=== PATIENT | female | born 2000 | race Caucasian/White ===

== ENCOUNTER 2021-11-18 05:59 | Inpatient (IN) | payer BC ==
--- NOTE | 2021-11-17 19:23 | P.HPOB ---
History of Present Illness H&P Date: 11/17/21 Chief Complaint: Induction of labor This is a 21 y.o. female, 1, para 0, with an estimated date of confinement of 11/14/2021, estimated gestational age of 40-4/7 weeks, who presents for induction of labor. She has irregular contractions and pressure. course has been complicated by intermittent maternal tachycardia. labs: Hepatitis B surface antigen-neg RPR-NR HIV-NR Rubella-immune Blood type-A+ Antibody screen-neg Hemoglobin-14.1 Toxoplasma-neg 1 hr. GTT-130 3 hr. 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 Review of Systems Constitutional: Denies chills, Denies fever Eyes: denies blurred vision, denies pain Ears, nose, mouth and throat: Denies headache, Denies sore throat Cardiovascular: Denies chest pain, Denies shortness of breath Respiratory: Denies cough Gastrointestinal: Reports abdominal pain (irregular contractions) Genitourinary: Reports pelvic pain, Reports Musculoskeletal: Reports low back pain Integumentary: Denies pruritus, Denies rash Neurological: Denies numbness, Denies weakness Psychiatric: Denies anxiety, Denies depression Past Medical History Past Medical History: No Reported History Past Surgical History: No Surgical Hx Reported Past Psychological History: No Psychological Hx Reported Smoking Status: Never smoker Past Alcohol Use History: None Reported Past Drug Use History: None Reported - Past Family History Father Family Medical History: Hypertension Medications and Allergies Home Medications Medication Instructions Recorded Confirmed Type Wws136/Iron/FA/O3/Dha/Epa/Fish 11/17/21 History [ Multi-Dha Softgel] Allergies Allergy/AdvReac Type Severity Reaction Status Date / Time No Known Allergies Allergy Verified 11/17/21 19:20 Exam Osteopathic Statement: *. No significant issues noted on an osteopathic structural exam other than those noted in the History and Physical/Consult. HEENT: within normal limits Heart: regular rate and rhythm Lungs: clear to auscultation bilaterally Abdomen: Cervix: 1.5 cm/70%/-2 heart tones: 140's by doppler Extremities: neg. Kendall's Assessment and Plan (1) 40 weeks gestation of Status: Acute Code(s): Z3A.40 - 40 WEEKS GESTATION OF SNOMED Code(s): 64065959 Plan: Proceed with oxytocin induction of labor. Expectant management. Epidural anesthesia if desired.
[2021-11-18] MEDS ORDERED: OXYTOCIN 10 UNIT/ML 1 ML VIAL IM PRN (06:12)
[2021-11-18] MEDS ORDERED: TERBUTALINE 1 MG/ML VIAL SQ PRN (06:12)
[2021-11-18] MEDS ORDERED: LIDOCAINE 0.5% (PF) 5 MG/ML (50 ML SDV) SQ PRN (06:12)
[2021-11-18] MEDS ORDERED: CARBOPROST TROMETHAMINE 250 MCG/ML 1 ML AMP IM PRN (06:12)
[2021-11-18] MEDS ORDERED: LIDOCAINE 1% (10MG/ML) FOR IV START INTRADERMA PRN (06:12)
[2021-11-18] MEDS ORDERED: METHYLERGONOVINE 0.2 MG/ML 1 ML AMP IM PRN (06:12)
[2021-11-18] MEDS ORDERED: OXYTOCIN 30 UNITS/500 ML NS 30 UNIT in SALINE 1 500ML.BAG IV SCH ×2 (06:12→20:50)
[2021-11-18] MEDS: LACTATED RINGERS 1,000 ML IV SCH ×5 (06:15→23:55)
[2021-11-18 07:09] LABS: Basophils % (A) 0 %; Eosinophils # (A) 0.1 k/uL (0-0.7); Eosinophils % (A) 1 %; HCT 38.3 % (34.0-46.0); HGB 12.9 gm/dL (11.4-16.0); Lymphocytes # (A) 2.3 k/uL (1.0-4.8); Lymphocytes % (A) 25 %; MCH 29.1 pg (25.0-35.0); MCHC 33.7 g/dL (31.0-37.0); MCV 86.5 fL (80.0-100.0); Mean Platelet Volume 9.6; Monocytes # (A) 0.3 k/uL (0-1.0); Monocytes % (A) 3 %; Neutrophils # (A) 6.5 k/uL (1.3-7.7); Neutrophils % (A) 70 %; Platelet Count 207 k/uL (150-450); RBC 4.42 m/uL (3.80-5.40); RDW 13.4 % (11.5-15.5); WBC 9.3 k/uL (3.8-10.6)
[2021-11-18] MEDS ORDERED: ROPIVACAINE 100 MG, fentaNYL (PF). 200 MCG in SODIUM CHLORIDE 0.9% 76 ML EPIDURAL ONE (11:56)
[2021-11-18] MEDS ORDERED: CITRIC ACID-SODIUM CITRATE 15 ML CUP PO ONE (19:10)
[2021-11-18] MEDS ORDERED: NALOXONE 0.4 MG/ML 1 ML VIAL IV PRN ×2 (19:47→20:50)
[2021-11-18] MEDS ORDERED: diphenhydrAMINE 50 MG/ML 1 ML VIAL IVP PRN ×3 (19:47→20:50)
[2021-11-18] MEDS ORDERED: HYDROmorphone 0.5 MG/0.5 ML SYRINGE IVP PRN ×2 (19:47→20:50)
[2021-11-18] MEDS ORDERED: ONDANSETRON 4 MG/2 ML VIAL IVP PRN ×2 (19:47→20:50)
[2021-11-18] MEDS ORDERED: KETOROLAC 15 MG/ML 1 ML VIAL IVP PRN (19:47)
--- NOTE | 2021-11-18 20:25 | P.OP ---
Date of Procedure: 11/18/21 Preoperative Diagnosis: 1. Intrauterine at 40-4/7 weeks. 2. Persistent category 2 heart tones. Postoperative Diagnosis: Same Procedure(s) Performed: Primary low transverse section Anesthesia: epidural (With Duramorph) Surgeon: Aditi Bright Interior Horticulturist #1: Yessenia Nicolas Estimated Blood Loss (ml): 500 Pathology: none sent Condition: stable Disposition: floor Indications for Procedure: This is a 21-year-old female 1 para 0 at 40-4/7 weeks who presented to the hospital for induction of labor. She underwent oxytocin induction of labor with artificial rupture of membranes. She initially started at 2 cm and reached a maximum a 4-1/2-5 cm. Category 2 heart tones were managed following algorithm including initiation of corrective measures. Throughout the day she had periods of variable decelerations that initially would respond to corrective measures. Shortly after her epidural, she did have a prolonged deceleration of approximately 8-9 minutes that did return to baseline but oxytocin was turned off. She was given oxygen and placed in knee-chest position. Once heart tones returned to baseline, she continued to have variable decelerations with each contraction. She had an occasional late deceleration but not persistent. Oxytocin was restarted after 30 minutes. She continued to have variable decelerations with each contraction that became more severe into the 60s with each contraction and lasting up to 60 seconds. These persisted despite multiple position changes. Her cervix had made minimal change during this time period despite restarting her oxytocin. With the persistent presence of Category 2 heart tones, a patient-centered huddle was held and the need for an expedited deliver was discussed with the patient. It is our clinical recommendation to proceed with the delivery and after questions were answered to the patient agrees to proceed with the recommended plan. I have discussed the risks, benefits, and alternative therapies for the above- mentioned procedure and for both sedation/anesthesia as well as necessary blood products administration, if indicated, as they pertain to this patient. The patient has indicated her understanding and acceptance of the risks and procedures discussed. Operative Findings: A viable female is noted in the vertex presentation with occiput posterior lie and nuchal cord 2. scores are 9 at 1 minute and 9 at 5 minutes and weight is 6 lbs. 13 oz. Normal uterus tubes and ovaries are noted. Description of Procedure: The patient is taken to the operating room where she is placed in the dorsal supine position with leftward tilt after epidural anesthesia is bolused. She is prepped and draped in the normal sterile fashion. scalp electrode is removed and vaginal prep is performed. Skin was tested and found to be adequately anesthetized. A Pfannenstiel skin incision was made with a scalpel. A second knife was used to carry the incision down to the underlying layer of fascia. The fascia was nicked in the midline with a scalpel and then extended laterally bilaterally with Harding scissors. The anterior lip of the fascia was grasped with 2 Dandy clamps and then dissected off the underlying rectus muscle in the midline with Harding scissors. The inferior aspect of the fascial incision was grasped with 2 Dandy clamps and dissected off the underlying rectus muscle and the midline with Harding scissors. Next the peritoneum layer was tented up with 2 hemostats and then entered sharply with the scalpel. The incision is extended superiorly and inferiorly with Metzenbaum scissors. Next a DeLee retractor is placed. The vesicouterine peritoneum is entered sharply with Metzenbaum scissors and extended laterally bilaterally with Metzenbaum scissors and then the bladder flap is pushed inferiorly. The lower uterine segment is incised in transverse fashion with the scalpel and then bluntly entered with a hemostat. Clear fluid is noted. The incision was then extended laterally bilaterally with 2 fingers. Next the 's head is delivered through the incision. Nose and mouth are bulb suctioned. Nuchal cord 2 was reduced around the 's head. The remainder of the is easily delivered and placed on mother's abdomen. Cord is clamped and cut. is taken to warmer by nursing staff. Uterine fundus is gently massaged and placenta is delivered manually. Uterus is exteriorized and cleared of all clots and debris. Uterine incision is closed with 0 Vicryl suture in a running locked fashion. A second layer of 0 Vicryl suture is used in a running fashion for hemostasis. Once adequate hemostasis as assured, the vesicouterine peritoneum is reapproximated with 2-0 Vicryl suture in a running fashion. Posterior cul-de-sac is suctioned of all clots and debris. Uterus is returned to the abdomen. Incision is noted to be hemostatic. Peritoneal layer is closed with 0 Vicryl suture in a running fashion. Muscle layer is reapproximated with 0 Vicryl suture in interrupted fashion. Fascia layer is then closed with 0 PDS suture with 2 sutures meeting in the midline and the knots buried in either side and in the midline. The subcutaneous tissue was then closed with 2-0 Vicryl suture. Skin layer was then closed with hilaria. All sponge and needle counts are correct. The patient is taken to recovery room in stable condition.
[2021-11-18] MEDS ORDERED: HYDROmorphone 1 MG/ML 1 ML SYRINGE IVP PRN (20:50)
[2021-11-18] MEDS ORDERED: HYDROmorphone PCA 10 MG/50 ML BAG IV PRN (20:50)
[2021-11-18] MEDS ORDERED: IBUPROFEN 600 MG TAB PO PRN (20:50)
[2021-11-18] MEDS ORDERED: METOCLOPRAMIDE 5 MG/ML 2 ML VIAL IVP PRN (20:50)
[2021-11-18] MEDS ORDERED: SIMETHICONE 80 MG CHEWABLE PO PRN (20:50)
[2021-11-18] MEDS ORDERED: diphenhydrAMINE 50 MG CAP PO PRN (20:50)
[2021-11-18] MEDS ORDERED: LANOLIN CREAM 5 GM TUBE TOPICAL PRN (20:50)
[2021-11-18] MEDS ORDERED: ZOLPIDEM 5 MG TAB PO PRN (20:50)
[2021-11-18] MEDS ORDERED: diphenhydrAMINE 25 MG CAP PO PRN (20:50)
[2021-11-18] MEDS: SENNOSIDES-DOCUSATE SODIUM 1 EACH TAB PO SCH (21:06)
[2021-11-18] MEDS: ACETAMINOPHEN TAB 500 MG TAB PO SCH (22:02)
[2021-11-18] MEDS: ACETAMINOPHEN IV (For NPO) 1,000 MG in EMPTY BAG 1 BAG IVPB SCH (23:54)
[2021-11-19] MEDS: IBUPROFEN 600 MG TAB PO SCH ×4 (03:05→21:02)
[2021-11-19 05:38] LABS: Basophils % (A) 0 %; Eosinophils # (A) 0.1 k/uL (0-0.7); Eosinophils % (A) 1 %; HCT 36.9 % (34.0-46.0); HGB 12.4 gm/dL (11.4-16.0); Lymphocytes # (A) 0.9 k/uL (1.0-4.8); Lymphocytes % (A) 10 %; MCH 29.5 pg (25.0-35.0); MCHC 33.5 g/dL (31.0-37.0); MCV 88.2 fL (80.0-100.0); Mean Platelet Volume 9.5; Monocytes # (A) 0.3 k/uL (0-1.0); Monocytes % (A) 3 %; Neutrophils # (A) 8.3 k/uL (1.3-7.7); Neutrophils % (A) 86 %; Platelet Count 146 k/uL (150-450); RBC 4.19 m/uL (3.80-5.40); RDW 13.8 % (11.5-15.5); WBC 9.6 k/uL (3.8-10.6)
[2021-11-19] MEDS: ACETAMINOPHEN TAB 500 MG TAB PO SCH ×3 (06:02→16:36)
[2021-11-19] MEDS: ACETAMINOPHEN IV (For NPO) 1,000 MG in EMPTY BAG 1 BAG IVPB SCH (06:03)
[2021-11-19] MEDS: KETOROLAC 15 MG/ML 1 ML VIAL IVP SCH ×3 (07:16→14:55)
[2021-11-19] MEDS: SENNOSIDES-DOCUSATE SODIUM 1 EACH TAB PO SCH ×2 (07:53→20:10)
[2021-11-19 08:18] VITALS: RESP 16
--- NOTE | 2021-11-19 11:38 | P.PNOBGPC ---
Subjective - Subjective Principal diagnosis: Status post primary section postoperative day #1 Interval history: Patient is doing well. She is ambulating. She is passing flatus and urinating without difficulty. Her pain is fairly well controlled with Toradol and IV Tylenol. She is working on breast-feeding. Bleeding is slowing down. Patient reports: Reports appetite normal, Reports voiding normally, Reports pain well controlled, Reports ambulating normally [place]: doing well, nursing well Objective - Vital Signs Latest vital signs: Vital Signs Temp Pulse Resp BP Pulse Ox 11/19/21 10:00 16 11/19/21 08:00 98.2 F 72 16 91/61 96 11/19/21 06:00 14 11/19/21 04:00 98.1 F 67 16 120/77 98 11/19/21 02:00 14 11/19/21 00:00 98.3 F 72 16 113/69 97 11/18/21 22:47 16 11/18/21 22:15 98.3 F 78 16 119/76 97 11/18/21 21:45 66 16 118/74 98 11/18/21 21:15 69 16 117/66 99 11/18/21 21:00 61 16 116/63 99 11/18/21 20:45 80 16 124/60 99 11/18/21 20:30 84 16 121/65 100 11/18/21 20:15 96.6 F L 80 16 125/73 100 11/18/21 19:15 100 Intake and Output 11/18/21 11/19/21 11/19/21 22:59 06:59 14:59 Output Total 775 1300 300 Balance -775 -1300 -300 Output: Urine 175 1300 300 Uretheral (De Dios) 1200 Output, Quantitative 600 Blood Loss Other: # Voids 1 - Exam Extremities: Present: normal. Absent: tenderness, edema Abdomen: Present: normal appearance, soft. Absent: distention, tenderness Incision: Present: normal, dry, intact. Absent: erythematous Uterus: Present: normal, firm. Absent: tenderness - Labs Labs: Abnormal Lab Results - Last 24 Hours (Table) 11/19/21 Range/Units 05:10 Plt Count 146 L (150-450) k/uL Neutrophils # 8.3 H (1.3-7.7) k/uL Lymphocytes # 0.9 L (1.0-4.8) k/uL Assessment and Plan Assessment: Status post primary low transverse section postoperative day #1 (1) 40 weeks gestation of Current Visit: No Status: Acute Code(s): Z3A.40 - 40 WEEKS GESTATION OF SNOMED Code(s): 79715840 Plan: Continue with postoperative and care today. Will advance diet as tolerated. We'll switch to oral pain medications.
--- NOTE | 2021-11-19 13:48 | P.PN ---
Progress Note - Text Progress Note Date: 11/19/21 Postoperative day 1 status post section under epidural anesthesia, and epidural morphine given for postoperative analgesia, patient doing well, there is no anesthesia related complications, Patient had no headache, vital signs stable , Assessment and plan= postop day 1 status post , doing well there is no anesthesia related complication.
[2021-11-20] MEDS: ACETAMINOPHEN TAB 500 MG TAB PO SCH ×2 (00:01→06:03)
[2021-11-20] MEDS: IBUPROFEN 600 MG TAB PO SCH ×2 (03:09→09:26)
[2021-11-20 08:03] VITALS: BP 132/89; PULSE 72; TEMP 98.4
[2021-11-20] MEDS: SENNOSIDES-DOCUSATE SODIUM 1 EACH TAB PO SCH (08:03)
--- NOTE | 2021-11-20 10:40 | P.DS ---
Providers Date of admission: 11/18/21 05:59 Expected date of discharge: 11/20/21 Attending physician: Aditi Bright Primary care physician: Stated None - Discharge Diagnosis(es) (1) 40 weeks gestation of Current Visit: No Status: Acute Hospital Course: This is a 21-year-old female 1 para 0 at 40-4/7 weeks who presented for induction of labor. She underwent oxytocin induction of labor and then ended up with a primary low transverse section and delivered a viable female with scores of 9 at 1 minute and 9 at 5 minutes and infant weight of 6 lbs. 13 oz. Please see history and physical and operative report for details of admission. Her course has been essentially uncomplicated. She is breast-feeding. Lochia is decreasing. Her pain is well-controlled. She is passing flatus and bowel movement. Baby does have a cardiac arrhythmia that has been evaluated by pediatrics and will need follow-up with pediatric cardiology after discharge. Her vital signs are stable. Abdomen is soft with fundus firm and nontender. Bowel sounds are present 4. Incision is clean dry and intact with hilaria in place. Extremities show negative Homans. Impression is status post primary low transverse section postoperative day #2. Plan is to discharge home today. Routine postoperative and instructions are given. Hilaria will be removed and Steri-Strips placed prior to discharge. She is advised to follow-up in the office in approximately one week for a postoperative check and in 6 weeks for check. She is advised to call the office if she has any further questions or concerns prior to her appointment time. She will be given a prescription for ibuprofen and a breast pump. Procedures: Oxytocin induction of labor Primary low transverse section on 11/18/2021 Patient Condition at Discharge: Stable Plan - Discharge Summary New Discharge Prescriptions: New Ibuprofen [Motrin] 600 mg PO Q6H #60 tab Continue Qoc191/Iron/FA/O3/Dha/Epa/Fish [ Multi-Dha Softgel] 1 tab PO DAILY Discharge Medication List Eli055/Iron/FA/O3/Dha/Epa/Fish [ Multi-Dha Softgel] 1 tab PO DAILY 11/17/21 [History] Ibuprofen [Motrin] 600 mg PO Q6H #60 tab 11/20/21 [Rx] Follow up Appointment(s)/Referral(s): Aditi Bright DO [Doctor of Osteopathic Medicine] - 12/30/21 11:30 am (Postoperative check in approximately 1-2 weeks) Activity/Diet/Wound Care/Special Instructions: Instructions 1. Do not begin any exercise program for 3 weeks. 2. Do not resume sexual relations for 3 weeks or longer if uncomfortable. 3. You may take tub baths or showers at any time. 4. You may use tampons if desired after 3 weeks. 5. Keep the area of episiotomy (stitches) clean and dry. 6. If you are not nursing, wear a good fitting, supportive bra during the day and limit fluid intake for at least 1 week to prevent breast engorgement. 7. Call the office, [phone], within the next week to make appointment for your 6 week checkup if it has not already been made. 8. Report any of the following occurrences to the doctor promptly: a. Heavy, excessive bleeding b. Chills, fever c. Burning or frequency of urination d. Pain or redness and breasts if nursing e. Increasing pain or swelling in episiotomy (stitches). In addition to the above instructions, the following additional should be followed: 1. No heavy lifting or straining (exercising) until after 6 week checkup. 2. Keep abdominal incision clean and dry: You may wear a dressing if more comfortable. 3. Make office appointment for 10 days after going home or as instructed by her doctor. Discharge Disposition: HOME SELF-CARE
== END 2021-11-20 12:20 | disposition home or self-care (01) | DRG 788 ==
LOC: 4FBP 05:59
PROVIDERS: ADMIT Obstetrics & Gynecology; ATTEND Obstetrics & Gynecology
PROC: 10907ZC Drainage of Amniotic Fluid, Therapeutic from Products of Conception, Via Natural or Artificial Opening (ICD-10-PCS; principal; 2021-11-18 19:30)
PROC: 10D00Z1 Extraction of Products of Conception, Low, Open Approach (ICD-10-PCS; principal; 2021-11-18 19:30)
PROC: 10H073Z Insertion of Monitoring Electrode into Products of Conception, Via Natural or Artificial Opening (ICD-10-PCS; principal; 2021-11-18 19:30)
PROC: 4A1H74Z Monitoring of Products of Conception, Cardiac Electrical Activity, Via Natural or Artificial Opening (ICD-10-PCS; principal; 2021-11-18 19:30)
PROC: 3E033VJ Introduction of Other Hormone into Peripheral Vein, Percutaneous Approach (ICD-10-PCS; principal; 2021-11-18 19:30)
DX: O76 Abnormality in fetal heart rate and rhythm complicating labor and delivery (principal); O99.892 Other specified diseases and conditions complicating childbirth; R00.0 Tachycardia, unspecified; O64.0XX0 Obstructed labor due to incomplete rotation of fetal head, not applicable or unspecified; O69.81X0 Labor and delivery complicated by cord around neck, without compression, not applicable or unspecified; Z3A.40 40 weeks gestation of pregnancy; Z37.0 Single live birth; Z28.310 Unvaccinated for COVID-19; Z82.49 Family history of ischemic heart disease and other diseases of the circulatory system
CPT/HCPCS: 85025; 86850; 86900; 86901

== ENCOUNTER 2024-03-16 08:06 | Outpatient (CLI) | payer BC ==
[2024-03-16] MEDS: LACTATED RINGERS 1,000 ML IV ONE (09:20)
[2024-03-16 10:13] LABS: Appearance,Urine Clear (Clear); Bilirubin,Urine Negative (Negative); Blood,Urine Negative (Negative); Color,Urine Yellow; Glucose,Urine (UA) Negative (Negative); Ketones,Urine 2+ (Negative); Leukocyte Esterase,Urine Negative (Negative); Nitrite,Urine Negative (Negative); Protein,Urine Trace (Negative); Specific Gravity,Urine 1.029 (1.001-1.035); Urobilinogen,Urine <2.0 mg/dL (<2.0)
[2024-03-16 10:13] LABS: Basophils % (A) 0 %; Eosinophils % (A) 1 %; HCT 38.3 % (34.0-46.0); HGB 12.8 gm/dL (11.4-16.0); Lymphocytes # (A) 0.7 k/uL (1.0-4.8); Lymphocytes % (A) 8 %; MCH 29.6 pg (25.0-35.0); MCHC 33.5 g/dL (31.0-37.0); MCV 88.5 fL (80.0-100.0); Monocytes # (A) 0.3 k/uL (0-1.0); Monocytes % (A) 3 %; Neutrophils # (A) 7.6 k/uL (1.3-7.7); Neutrophils % (A) 87 %; Platelet Count 176 k/uL (150-450); RBC 4.33 m/uL (3.80-5.40); RDW 13.1 % (11.5-15.5); WBC 8.7 k/uL (3.8-10.6)
[2024-03-16 11:04] VITALS: BP 131/71; PULSE 99; RESP 16; TEMP 98
--- NOTE | 2024-05-23 15:41 | P.MSEPDOC ---
Presenting Problems - Arrival Data Date of Arrival on Unit: 03/16/24 Time of Arrival on Unit: 08:06 Mode of Transport: Ambulatory - Complaint OB-Reason for Admission/Chief Complaint: Decreased Movement, Acute Nausea/Vomiting Medical History - Information : 2 Para: 1 Term: 1 : 0 Abortions: Spontaneous or Elective: 0 Number of Living Children: 1 - Gestational Age Gestational Age by ROBBI (wks/days): 32 Weeks and 4 Days - History Complications: Prior Review of Systems - Review of Systems Constitutional: No problems Breast: No problems ENT: No problems Cardiovascular: No problems Respiratory: No problems Gastrointestinal: Diarrhea Genitourinary: No problems Musculoskeletal: No problems Neurological: No problems Skin: No problems Vital Signs - Temperature Temperature: 98 F Temperature Source: Temporal Artery Scan - Pulse Pulse Oximetery Pulse Rate: 99 Pulse Assessment Method: Pulse Oximetry - Respirations Respiratory Rate: 16 Oxygen Delivery Method: Room Air O2 Sat by Pulse Oximetry: 98 - Blood Pressure Right Arm Sitting Blood Pressure: 131/71 Blood Pressure Mean: 91 Blood Pressure Source: Automatic Cuff Medical Screen Scoring - Cervical Exam Dilation (cm): 0 Effacement (%): 0 Station: -2 Membranes: Intact - Uterine Contractions Intensity: Absent - Assessment - Baby A Baseline FHR: 135 Heart Rate - NICHD Category: Category I (Normal) NST: Reactive Physician Notification - Physician Notified Physician Notified Date: 03/16/24 Physician Notified Time: 08:35 Physician: Lashonda Farooq Order Received: Yes - Notification Comment Comment: initial report at 0835 given by Marianna Cox RN. DC report given at 1035 by Radha Rea RN Maternal Triage Index - Maternal Triage Index Presenting for scheduled procedure w/no complaint: No - Stat/Priority 1 Stat Priority 1: No - Urgent/Priority 2 Urgent Priority 2: No - Prompt/Priority 3 Prompt Priority 3: Yes Criteria Met for Priority 3: cramping at less than 34 weeks. Vag exam performed by Marianna Cox RN Disposition - Disposition OB Disposition: Discharge to home Discharge Date: 03/16/24 Discharge Time: 10:50 I agree with the RN Medical Screening Exam: Yes Physician's MSE Comment: I have neither seen nor examined the patient Case reviewed; plan agreed upon as documented in EMR&OBIX.: Yes Diagnosis: FALSE LABOR, UNSPECIFIED
== END 2024-03-16 10:50 | disposition home or self-care (01) ==
LOC: FBPOP 08:06
PROVIDERS: ATTEND Obstetrics & Gynecology
DX: O47.9 False labor, unspecified (principal); Z3A.32 32 weeks gestation of pregnancy
CPT/HCPCS: 59025; 81003; 85025; 96360; 96361; 99214

== ENCOUNTER 2024-05-01 09:42 | Inpatient (IN) | payer BC, MEDICAID ==
[2024-04-28 13:05] VITALS: BMI 32.1
[2024-05-01] MEDS ORDERED: CARBOPROST TROMETHAMINE 250 MCG/ML 1 ML AMP IM PRN (10:45)
[2024-05-01] MEDS ORDERED: miSOPROStoL 200 MCG TAB PO PRN (10:45)
[2024-05-01] MEDS ORDERED: METHYLERGONOVINE 0.2 MG/ML 1 ML AMP IM PRN (10:45)
[2024-05-01] MEDS ORDERED: TRANEXAMIC 1,000 MG/100ML-NACL 1,000 MG in EMPTY BAG 1 BAG IV PRN (10:45)
[2024-05-01] MEDS ORDERED: OXYTOCIN 10 UNIT/ML 1 ML VIAL IM PRN (10:45)
[2024-05-01 11:00] LABS: Basophils % (A) 0 %; Eosinophils # (A) 0.2 k/uL (0-0.7); Eosinophils % (A) 2 %; HCT 35.6 % (34.0-46.0); HGB 12.1 gm/dL (11.4-16.0); Lymphocytes # (A) 1.4 k/uL (1.0-4.8); Lymphocytes % (A) 17 %; MCH 28.7 pg (25.0-35.0); MCV 84.3 fL (80.0-100.0); Mean Platelet Volume 8.7; Monocytes # (A) 0.3 k/uL (0-1.0); Monocytes % (A) 3 %; Neutrophils # (A) 6.5 k/uL (1.3-7.7); Neutrophils % (A) 76 %; Platelet Count 195 k/uL (150-450); RBC 4.22 m/uL (3.80-5.40); RDW 13.4 % (11.5-15.5); WBC 8.5 k/uL (3.8-10.6)
[2024-05-01] MEDS: LACTATED RINGERS 1,000 ML IV ONE (11:00)
[2024-05-01] MEDS: CITRIC ACID-SODIUM CITRATE 15 ML CUP PO ONE (11:44)
[2024-05-01] MEDS: LACTATED RINGERS 1,000 ML IV SCH ×2 (11:45→21:52)
[2024-05-01] MEDS ORDERED: DEXAMETHASONE SOD PHOSPHATE 4 MG/ML 1 ML VIAL ONE (12:06)
[2024-05-01] MEDS ORDERED: OXYTOCIN 30 UNITS/500 ML NS BAG IV ONE (12:06)
[2024-05-01] MEDS ORDERED: ONDANSETRON 4 MG/2 ML VIAL ONE (12:06)
[2024-05-01] MEDS ORDERED: KETOROLAC 15 MG/ML 1 ML VIAL ONE (12:06)
[2024-05-01] MEDS ORDERED: NALBUPHINE (ANES) 10 MG/ML - 1 ML AMP ONE (12:06)
[2024-05-01] MEDS ORDERED: MORPHINE SULFATE (PF) 0.3 MG/0.3 ML SYR ONE (12:06)
[2024-05-01] MEDS ORDERED: PHENYLEPHRINE-0.9% NACL SYG 1,000 MCG/10 ML SYRINGE ONE (12:06)
[2024-05-01] MEDS: OXYTOCIN 30 UNITS/500 ML NS 30 UNIT in SALINE 1 500ML.BAG IV SCH (12:57)
--- NOTE | 2024-05-01 13:08 | P.HPOB ---
History of Present Illness H&P Date: 05/01/24 Chief Complaint: Scheduled repeat section Ms. Cerda is a 23 year old at 39 weeks and 1 day gestation by LMP consistent with 9 week US who presents to labor and delivery for scheduled repeat section. Her has been essentially uncomplicated. Obstetric history: 1 FTCS due to non-reassuring heart tones work-up: blood type A positive, antibody screen negative, rubella non- reactive, HBsAg negative, HIV negative, HCV Ab non-reactive, 1 hour GTT wnl, GBS negative. s/p Tdap in 3rd trimester. Past Medical History Past Medical History: No Reported History History of Any Multi-Drug Resistant Organisms: None Reported Past Surgical History: Section Additional Past Surgical History / Comment(s): CS X1. Past Anesthesia/Blood Transfusion Reactions: No Reported Reaction, Motion Sickness Past Psychological History: No Psychological Hx Reported Smoking Status: Never smoker Past Alcohol Use History: Occasional Additional Past Alcohol Use History / Comment(s): Occasional alcohol use but not during . Past Drug Use History: None Reported - Past Family History Father Family Medical History: Hypertension, Liver Disease Additional Family Medical History / Comment(s): Pt states that her father has a condition related to his liver, but is not sure what it is called. Medications and Allergies Home Medications Medication Instructions Recorded Confirmed Type Wiz824/Iron/FA/O3/Dha/Epa/Fish 1 tab PO DAILY 11/17/21 04/28/24 History [ Multi-Dha Softgel] Allergies Allergy/AdvReac Type Severity Reaction Status Date / Time No Known Allergies Allergy Verified 05/01/24 10:45 Exam Intake and Output 04/30/24 05/01/24 05/01/24 22:59 06:59 14:59 Other: Weight 92.986 kg Focused physical exam is performed. This is a healthy-appearing in no apparent distress. Breathing is non-labored. Abdomen is gravid and non-tender. Extremities non-tender and non-edematous. heart tones are reactive and reassuring on NST. Results Result Diagrams: 05/01/24 10:45 Assessment and Plan Assessment: 23 year old at 39 weeks and 1 day presenting for scheduled repeat section Plan: Admit, NPO, initiate protocol
[2024-05-01] MEDS ORDERED: NALOXONE 0.4 MG/ML 1 ML VIAL IV PRN (13:13)
[2024-05-01] MEDS ORDERED: diphenhydrAMINE 25 MG CAP PO PRN (13:13)
[2024-05-01] MEDS ORDERED: diphenhydrAMINE 50 MG/ML 1 ML VIAL IVP PRN ×2 (13:13)
[2024-05-01] MEDS ORDERED: ONDANSETRON 4 MG/2 ML VIAL IVP PRN (13:13)
[2024-05-01] MEDS ORDERED: SIMETHICONE 80 MG CHEWABLE PO PRN (13:13)
[2024-05-01] MEDS ORDERED: diphenhydrAMINE 50 MG CAP PO PRN (13:13)
[2024-05-01] MEDS ORDERED: ZOLPIDEM 5 MG TAB PO PRN (13:13)
--- NOTE | 2024-05-01 13:14 | P.OP ---
Date of Procedure: 05/01/24 Preoperative Diagnosis: 1. Term IUP at 39 weeks 2. History of prior section 3. No desire to TOLAC Postoperative Diagnosis: Same Procedure(s) Performed: Repeat Lower Transverse Section Implants: None Anesthesia: spinal Surgeon: Lashonda Farooq Lithographic Artist #1: Yessenia Nicolas Estimated Blood Loss (ml): 233 IV fluids (ml): 900 Urine output (ml): 25 (clear yellow) Pathology: none sent Condition: stable Disposition: floor Indications for Procedure: Ms. Cerda is a 23 year old at 39 weeks and 1 day presenting for schedule repeat section. The risks, benefits, and alternatives to section were discussed with the patient including risk of bleeding, infection, damage to surrounding structures including bladder/bowels/ureters, an d post-operative VTE. The patient understands these risks and desires to proceed with section. Operative Findings: Colorless amniotic fluid. Viable male in cephalic presentation. Nuchal cord x1 reduced without difficulty. Apgars 9/9. Weight 7 pounds and 1 ounce (3210 grams) Description of Procedure: The patient was taken back to the operating room where spinal anesthesia was found to be adequate. Two grams of Ancef were given for infection prophylaxis. She was prepared and draped in the dorsal supine position with a leftward tilt. A Pfannenstiel skin incision was made with the scalpel. The incision was carried down to the fascia with a bovie. The fascia was incised and extended laterally with Harding scissors. The superior aspect of the fascia was grasped with the Dandy clamps. The underlying rectus muscle was dissected off sharply with Harding scissors. In a similar fashion, the inferior aspect of the fascia was elevated w ith Dandy clamps and the rectus muscle and pyramidalis were dissected off. Excellent hemostasis was achieved with the bovie. The rectus muscle was in the midline down to the level of the pubic symphysis. Pre- peritoneal fatty tissue was bluntly dissected to expose the peritoneum. The peritoneum was found to be free of adherent bowel and entered sharply with Harding scissors. The peritoneal incision was extended superiorly and inferiorly to the bladder reflection with good visualization of the bladder. The bladder blade was inserted and vesicouterine peritoneum was identified. Intraabdominal survey revealed scant, clear peritoneal fluid and the thinned-out lower uterine segment. The vesicouterine peritoneum was opened with scissors and the bladder flap was developed. The bladder blade was repositioned to keep the bladder out of the operative field. The lower uterine segment was incised with a scalpel. The amniotic sac was ruptured with an Allis clamp and clear fluid was noted. The uterine incision was extended bluntly with lateral and upward traction. The fetus was in cephalic presentation. The head was elevated out of the pelvis with special attention paid to avoid using the uterine incision as a fulcrum. Gentle fundal pressure was applied once the head was brought into the incision. A vaccuum was needed to assisted with the delivery of the head, there were no pop- offs. The infant was delivered with no difficulty and was noted to be crying spontaneously. The mouth and nose were suctioned with a bulb. The cord was clamped and cut. The infant was handed off to the client partner. IV oxytocin was initiated to facilitate uterine contractions. The placenta was delivered intact with manual massage of uterine fundus. The uterus was then exteriorized and the inside of the uterus was gently wiped with a lap sponge to assure complete removal of placental membranes. The uterine incision was closed with 0-Vicryl suture in a running locked fashion. The ovaries and tubes were found to be normal. The uterus, tubes, and ovaries were then gently returned to the abdominal cavity. The abdomen was copiously suction irrigated. The uterine incision was reinspected and excellent hemostasis was noted. The fascial layer was closed with a 0-Vicryl suture. The subcutaneous tissue was reapproximated with 2-0 Plain Gut. The skin was closed with 4-0 Monocryl in a subcuticular fashion.The patient tolerated the procedure well. All the counts were correct times two. The patient was taken to the recovery room in a stable condition. A physician surgical supervisor was utilized for the entire procedure due to the need for tissue retraction, dissection of vital structures, prevention and management of blood loss, and reduction in overall operative and anesthesia time as is the standard of care.
[2024-05-01] MEDS: ACETAMINOPHEN TAB 500 MG TAB PO SCH (16:20)
[2024-05-01] MEDS: LACTATED RINGERS 500 ML IV SCH ×2 (17:00→21:51)
[2024-05-01] MEDS: METOCLOPRAMIDE 5 MG/ML 2 ML VIAL IVP PRN (17:00)
[2024-05-01] MEDS: KETOROLAC 15 MG/ML 1 ML VIAL IVP SCH ×2 (20:09→20:23)
[2024-05-01] MEDS: SENNOSIDES-DOCUSATE SODIUM 1 EACH TAB PO SCH (20:22)
[2024-05-02 05:23] LABS: Basophils % (A) 0 %; Eosinophils # (A) 0.1 k/uL (0-0.7); Eosinophils % (A) 1 %; HCT 31.7 % (34.0-46.0); HGB 11.1 gm/dL (11.4-16.0); Lymphocytes # (A) 1.6 k/uL (1.0-4.8); Lymphocytes % (A) 16 %; MCH 29.7 pg (25.0-35.0); MCHC 34.9 g/dL (31.0-37.0); Mean Platelet Volume 8.9; Monocytes # (A) 0.4 k/uL (0-1.0); Monocytes % (A) 4 %; Neutrophils # (A) 7.7 k/uL (1.3-7.7); Neutrophils % (A) 78 %; Platelet Count 160 k/uL (150-450); RBC 3.73 m/uL (3.80-5.40); RDW 13.4 % (11.5-15.5); WBC 9.9 k/uL (3.8-10.6)
--- NOTE | 2024-05-02 07:28 | P.PNOBGPC ---
Subjective - Subjective Principal diagnosis: s/p scheduled repeat section Interval history: The patient is doing well this morning and had no acute events overnight. She has no complaints this morning. She reports minimal lochia, passing flatus, ambulating, and eating/drinking without nausea or vomiting. She has not been able to void yet. She was straight cathed around 4AM for 1400 mL. She is breast feeding her infant without difficulty. She denies chest pain, shortness of breathing, fevers, or chills overnight. She denies pain or swelling in the legs. Patient reports: Reports appetite normal, Reports pain well controlled, Reports ambulating normally [place]: doing well, nursing well Objective - Vital Signs Latest vital signs: Vital Signs Temp Pulse Resp BP Pulse Ox 05/02/24 00:00 98.2 F 91 17 112/70 98 05/01/24 20:00 97.3 F L 66 14 119/80 98 05/01/24 16:00 97.4 F L 56 L 16 122/83 97 05/01/24 15:01 63 18 116/71 98 05/01/24 14:46 61 18 118/86 98 05/01/24 14:31 65 16 113/66 98 05/01/24 14:16 56 L 16 115/65 98 05/01/24 14:01 58 L 18 111/65 99 05/01/24 13:46 59 L 18 109/65 98 05/01/24 13:31 61 16 112/63 97 05/01/24 13:16 60 18 106/53 96 05/01/24 13:01 97.2 F L 70 18 113/59 98 Intake and Output 05/01/24 05/02/24 05/02/24 22:59 06:59 14:59 Intake Total 500 Output Total 1650 1400 Balance -1650 -900 Intake: IV 500 Invasive Line 1 500 Output: Urine 1600 1400 Straight 1400 Uretheral (De Dios) 1200 Output, Quantitative 50 Blood Loss Other: Voiding Method Indwelling Catheter Indwelling Catheter # Voids 0 - Exam Extremities: Present: normal Abdomen: Present: normal appearance, soft Incision: Present: normal, dressed Uterus: Present: normal, firm - Labs Labs: Abnormal Lab Results - Last 24 Hours (Table) 05/02/24 Range/Units 05:09 RBC 3.73 L (3.80-5.40) m/uL Hgb 11.1 L (11.4-16.0) gm/dL Hct 31.7 L (34.0-46.0) % Assessment and Plan Assessment: 23 year old now POD#1 s/p scheduled repeat section Plan: 1. Postoperative. Awaiting spontaneous void, continue to monitor. 2. Viable male at bedside, nursing well. Will have circumcision tomorrow. Dispo: Anticipate discharge home tomorrow on POD#2
--- NOTE | 2024-05-02 09:17 | P.PN ---
Progress Note - Text 05/02/24 628am 23-year-old female status post with spinal Duramorph. Patient seen and evaluated for postop pain control, she has a VAS of 5 with no complaints of nausea. She does have pruritus which should subside soon
[2024-05-02] MEDS: IBUPROFEN 800 MG TAB PO SCH (11:37)
[2024-05-03 08:22] VITALS: BP 120/83; PULSE 75; RESP 16; TEMP 98.1
--- NOTE | 2024-05-03 09:43 | P.DS ---
Providers Date of admission: 05/01/24 10:03 Expected date of discharge: 05/03/24 Attending physician: Lashonda Farooq MD Primary care physician: Stated None Hospital Course: Ms. Cerda is a 23 year old now POD#2 s/p scheduled repeat section without complications. The patient is doing well this morning and had no acute events overnight. She has no complaints this morning. She reports minimal lochia, passing flatus, voiding without difficulty, ambulating, and eating/drinking without nausea or vomiting. Infant doing well at bedside, s/p circumcision. She denies chest pain, shortness of breathing, fevers, or chills overnight. She denies pain or swelling in the legs. Postoperative restrictions are reviewed with the patient including pelvic rest for 6 weeks, no lifting heavier than 15 pounds for 6 weeks. The patient is encouraged to call the office if she experiences any heavy bleeding, foul-smelling discharge, breast complaints, or any if she has any other concerns. She will follow up in the office with in 2 weeks for postoperative exam. She plans to use Motrin and Tylenol OTC as needed. All questions are answered. Assessment: 23 year old now POD#2 s/p repeat Plan - Discharge Summary Discharge Rx Participant: Yes New Discharge Prescriptions: New Docusate [Colace] 100 mg PO BID PRN #60 capsule PRN Reason: Constipation No Action [id number]/Iron/FA/O3/Dha/Epa/Fish [ Multi-Dha Softgel] 1 tab PO DAILY Discharge Medication List [id number]/Iron/FA/O3/Dha/Epa/Fish [ Multi-Dha Softgel] 1 tab PO DAILY 11/17/21 [History] Docusate [Colace] 100 mg PO BID PRN #60 capsule 05/03/24 [Rx] Follow up Appointment(s)/Referral(s): Lashonda Farooq MD [STAFF PHYSICIAN] - 05/14/24 11:30 am (Post Appointment 06-16-2024 at 1:30pm) Activity/Diet/Wound Care/Special Instructions: Instructions 1. Do not begin any exercise program for 3 weeks. 2. Do not resume sexual relations for 6 weeks or longer if uncomfortable. 3. You may take tub baths or showers at any time. 4. You may use tampons if desired after 6 weeks. 5. Keep any areas repaired with stitches clean and dry. 6. If you are not nursing, wear a good fitting, supportive bra during the day and limit fluid intake for at least 1 week to prevent breast engorgement. 7. Call the office, , within the next week to make appointment for your 6 week checkup if it has not already been made. 8. Report any of the following occurrences to the doctor promptly: a. Heavy, excessive bleeding b. Chills, fever c. Burning or frequency of urination d. Pain or redness and breasts if nursing e. Increasing pain or swelling of vulva (stitches). In addition to the above instructions, the following additional should be followed: 1. No heavy lifting or straining (exercising) until after 6 week checkup. 2. Keep abdominal incision clean and dry: You may wear a dressing if more comfortable. 3. Make office appointment for 2 weeks after delivery date. Discharge Disposition: HOME SELF-CARE
== END 2024-05-03 11:00 | disposition home or self-care (01) | DRG 788 ==
LOC: 4FBP 10:03
PROVIDERS: ADMIT Obstetrics & Gynecology; ATTEND Obstetrics & Gynecology
PROC: 0DNW0ZZ Release Peritoneum, Open Approach (ICD-10-PCS; 2024-05-01)
PROC: 10D00Z1 Extraction of Products of Conception, Low, Open Approach (ICD-10-PCS; principal; 2024-05-01 12:00)
DX: O34.211 Maternal care for low transverse scar from previous cesarean delivery (principal); Z3A.39 39 weeks gestation of pregnancy; O69.81X0 Labor and delivery complicated by cord around neck, without compression, not applicable or unspecified; O99.62 Diseases of the digestive system complicating childbirth; K66.0 Peritoneal adhesions (postprocedural) (postinfection); Z37.0 Single live birth; L29.9 Pruritus, unspecified; O99.73 Diseases of the skin and subcutaneous tissue complicating the puerperium
CPT/HCPCS: 85025; 86850; 86900; 86901